=== PATIENT | female | born 1970 | race Caucasian/White ===

== ENCOUNTER 2018-05-01 16:43 | Outpatient (CLI) | payer BC ==
--- NOTE | 2018-05-01 23:14 | XRAY Report ---
Reason: Back Pain, Lumbar w/radiculopathy Procedure Date: 05/01/2018 Accession Number: [id number] / [id number] Procedure: XR - Lumbar Spine Complete CPT Code: FULL RESULT: EXAM: LUMBOSACRAL SPINE RADIOGRAPHY EXAM DATE: 05/01/2018 05:09 PM. CLINICAL HISTORY: Back Pain, Lumbar w/radiculopathy. COMPARISONS: None. TECHNIQUE: 3 views. FINDINGS: Alignment: There is degenerative anterolisthesis of L4 on L5 by approximately 5 mm. Minimal degenerative levoscoliosis. Bones: Five bee-lfm-dyfzann lumbar vertebral bodies are present. No fractures or bone lesions. Disks: Degenerative disk disease. Facets: Degenerative facet arthropathy. Sacroiliac Joints: Unremarkable. Soft Tissues: Normal. The visualized bowel gas pattern is normal. IMPRESSION: Degenerative disk and facet disease, with degenerative anterolisthesis of L4 on L5 and mild scoliosis. RADIA
== END 2018-05-01 16:44 | disposition home or self-care (01) ==
LOC: DI 16:43
PROVIDERS: ATTEND Physician Assistant Medical
DX: M51.36 Other intervertebral disc degeneration, lumbar region (principal); M47.9 Spondylosis, unspecified; M43.16 Spondylolisthesis, lumbar region; M41.56 Other secondary scoliosis, lumbar region
CPT/HCPCS: 72110

== ENCOUNTER 2018-11-13 13:41 | Emergency (ER) | payer OTHER, BC ==
[2018-11-13 13:52] VITALS: BP 173/103
--- NOTE | 2018-11-13 13:55 | ED Physician Documentation ---
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.) Where injury occurred: Work Timing - onset: Today (just TRAVELING [employer]) Timing - details: Abrupt onset (direct pressure applied right away.) Worsened by: Palpating Associated symptoms: No: Weakness, Numbness Similar symptoms before: Has not had sx before Review of Systems Skin: reports: Laceration (s) Neurologic: denies: Focal weakness, Numbness PD PAST MEDICAL HISTORY - Past Medical History Cardiovascular: None Respiratory: None Neuro: None - Present Medications Home Medications: Ambulatory Orders Medication Instructions Recorded Confirmed Atorvastatin [Lipitor] 10 mg PO DAILY 11/13/18 11/13/18 Duloxetine HCl [Cymbalta] 20 mg PO DAILY 11/13/18 11/13/18 Omeprazole Magnesium [Prilosec] 10 mg PO DAILY 11/13/18 11/13/18 buPROPion [Wellbutrin Sr] 150 mg PO BID 11/13/18 11/13/18 - Allergies Allergies/Adverse Reactions: Allergies Allergy/AdvReac Type Severity Reaction Status Date / Time codeine Allergy Headache Verified 11/13/18 13:47 pregabalin [From Lyrica] Allergy Headache Verified 11/13/18 13:48 PD ED PE NORMAL - Vitals Vital signs reviewed: Yes - General General: Alert and oriented X 3, No acute distress, Well developed/nourished - Derm Derm: Normal color, Warm and dry - Extremities Extremities: Other (Dorsum of the right thumb just distal to the IP joint shows a well-demarcated 1-1/2 cm laceration that does not really open with flexion and extension. There is no foreign body. There is no bleeding at this time. She has normal sensation distal to the laceration. It does not involve the nailbed.) - Neuro Neuro: Alert and oriented X 3, No motor deficit, No sensory deficit Results - Vitals Vitals: Vital Signs - 24 hr 11/13/18 13:45 Temperature 36.5 C Heart Rate 92 Respiratory 14 Rate Blood Pressure 173/103 H O2 Saturation 100 Procedures - Laceration (location) right thumb Length in cm: 1.5 Wound type: Linear, Into subcut fat, Clean Neurovascular status: Sensory intact, Motor intact Tendon involvement: No: Tendon Injury Skin layer closure: Dermabond, Steri strips Other: Patient tolerated well, Tetanus UTD (in 2013) PD MEDICAL DECISION MAKING - ED course Complexity details: considered differential, d/w patient Departure - Departure Disposition: 01 Home, Self Care Clinical Impression: Thumb laceration Qualifiers: Encounter type: initial encounter Damage to nail status: without damage Foreign body presence: without foreign body Laterality: right Qualified Code(s): S61.011A - Laceration without foreign body of right thumb without damage to nail, initial encounter Condition: Stable Record reviewed to determine appropriate education?: Yes Instructions: ED Laceration Hand Follow-Up: Breanna Reed PA-C [Primary Care Provider] - Comments: Keep the area clean and dry for the next several days. Allow the Steri-Strips to fall off on their own after several days or more. At that point you should build treated with normal wound care of cleaning ointment and a Band-Aid. It should be sealed together pretty well after several days. Recheck if signs of infection. Tylenol or ibuprofen if needed for pains.
[2018-11-13] MEDS ORDERED: IBUPROFEN 600 MG TABLET PO STA (14:13)
[2018-11-13] MEDS ORDERED: ACETAMINOPHEN 325 MG TABLET PO STA (14:13)
== END 2018-11-13 14:30 | disposition home or self-care (01) ==
LOC: ED 13:41
DX: S61.011A Laceration without foreign body of right thumb without damage to nail, initial encounter (principal); W27.5XXA Contact with paper-cutter, initial encounter; Y93.89 Activity, other specified; Y99.0 Civilian activity done for income or pay
CPT/HCPCS: 1040M; 12001; 99282; 99283; A9270

== ENCOUNTER 2019-02-11 09:41 | Outpatient (CLI) | payer BC ==
[2019-02-11 17:25] LABS: BASOPHILS # (AUTO) 0.1 10^3/uL (0.0-0.1); BASOPHILS % (AUTO) 0.8 %; EOSINOPHILS # (AUTO) 0.2 10^3/uL (0.0-0.7); EOSINOPHILS % (AUTO) 2.5 %; HGB - HEMOGLOBIN 12.5 g/dL (12.0-16.0); LYMPHOCYTES # (AUTO) 3.2 10^3/uL (1.5-3.5); LYMPHOCYTES % (AUTO) 45.9 %; MEAN CORPUSCULAR HGB CONC 30.7 g/dL (32.0-36.0); MEAN CORPUSCULAR VOLUME 84.8 fL (81.0-99.0); MEAN PLATELET VOLUME 10.4 fL (7.9-10.8); MONOCYTES # (AUTO) 0.6 10^3/uL (0.0-1.0); MONOCYTES % (AUTO) 8.4 %; PLT - PLATELET COUNT 267 10^3/uL (130-450); RED CELL DISTRIBUTION WIDTH 15.4 % (12.0-15.0); WHITE BLOOD COUNT 7.1 x10^3/uL (4.8-10.8)
[2019-02-11 17:52] LABS: ALBUMIN 4.5 g/dL (3.2-5.5); ALBUMIN/GLOBULIN RATIO 1.4 (1.0-2.2); ALKALINE PHOSPHATASE 49 IU/L (42-121); ALT ALANINE AMINOTRANSFERASE 37 IU/L (10-60); AST ASPARTATE AMINOTRANSFERASE 26 IU/L (10-42); BILIRUBIN,TOTAL 0.5 mg/dL (0.2-1.0); BUN - BLOOD UREA NITROGEN 19 mg/dL (6-20); CALCIUM 9.8 mg/dL (8.5-10.3); CARBON DIOXIDE - CO2 27 mmol/L (21-32); CHLORIDE 106 mmol/L (101-111); CHOL/HDL RATIO 2.9 (<4.4); CHOLESTEROL 196 mg/dL; CREATININE 0.9 mg/dL (0.4-1.0); GFR - MDRD 67 (>89); GLUCOSE 94 mg/dL (70-100); HDL CHOLESTEROL 67 mg/dL; LDL CHOLESTEROL,CALCULATED 104 mg/dL; LDL/HDL RATIO 1.6 (<4.4); SODIUM 143 mmol/L (135-145); TOTAL PROTEIN 7.8 g/dL (6.7-8.2); VLDL CHOLESTEROL 25 mg/dL
== END 2019-02-11 09:42 | disposition home or self-care (01) ==
LOC: LAB.S 09:41
PROVIDERS: ATTEND Physician Assistant Medical
DX: E78.00 Pure hypercholesterolemia, unspecified (principal); Z79.899 Other long term (current) drug therapy
CPT/HCPCS: 36415; 80053; 80061; 83721; 85025

== ENCOUNTER 2019-08-30 12:25 | Emergency (ER) | payer BC, OTHER ==
--- NOTE | 2019-08-30 13:49 | ED Physician Documentation ---
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 No fall.) Review of Systems Constitutional: denies: Fever, Chills Cardiac: denies: Chest pain / pressure, Palpitations Respiratory: denies: Dyspnea, Cough PD PAST MEDICAL HISTORY - Past Medical History Cardiovascular: None Respiratory: None Neuro: None - Past Surgical History Past Surgical History: No - Present Medications Home Medications: Ambulatory Orders Medication Instructions Recorded Confirmed Atorvastatin [Lipitor] 10 mg PO DAILY 11/13/18 11/13/18 Duloxetine HCl [Cymbalta] 20 mg PO DAILY 11/13/18 11/13/18 Omeprazole Magnesium [Prilosec] 10 mg PO DAILY 11/13/18 11/13/18 buPROPion [Wellbutrin Sr] 150 mg PO BID 11/13/18 11/13/18 Cyclobenzaprine [Flexeril] 10 mg PO TID PRN #20 tablet 08/30/19 - Allergies Allergies/Adverse Reactions: Allergies Allergy/AdvReac Type Severity Reaction Status Date / Time codeine Allergy Headache Verified 08/30/19 12:37 pregabalin [From Lyrica] Allergy Headache Verified 08/30/19 12:37 - Social History Does the pt smoke?: No Smoking Status: Never smoker Does the pt drink ETOH?: No Does the pt have substance abuse?: No - Immunizations Immunizations are current?: Yes - POLST Patient has POLST: No PD ED PE NORMAL - Vitals Vital signs reviewed: Yes - General General: Alert and oriented X 3, No acute distress - Neck Neck: Other (No midline neck tenderness but she is tender of the left greater than right sternocleidomastoid and difficulty with rotation of the neck especially to the left.) - Extremities Extremities: Other (Mild tenderness of the proximal forearm, no swelling. Full range of motion at the wrist elbow and shoulder. No bony tenderness throughout the right upper extremity or clavicle. 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 No evidence of bony injury. Normal neurovascular status. 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 Return for new or worsening symptoms. Do not drink or drive while taking prescription muscle relaxers. I have also written a handwritten order for physical therapy 3 times a week for 6 weeks as needed but I would not start that unless you remain symptomatic for more than a few days. Forms: Activity restrictions
[2019-08-30 14:07] VITALS: BP 138/77
== END 2019-08-30 14:18 | disposition home or self-care (01) ==
LOC: ED 12:25
DX: S46.911A Strain of unspecified muscle, fascia and tendon at shoulder and upper arm level, right arm, initial encounter (principal); M54.2 Cervicalgia; M62.838 Other muscle spasm; X50.1XXA Overexertion from prolonged static or awkward postures, initial encounter; Y93.89 Activity, other specified; Y92.219 Unspecified school as the place of occurrence of the external cause; Y99.0 Civilian activity done for income or pay
CPT/HCPCS: 1040M; 99282; 99283

== ENCOUNTER 2020-04-19 14:20 | Outpatient (CLI) | payer BC, OTHER | END 2020-04-19 23:59 | disposition home or self-care (01) | LOC: LAB.R 14:20 | PROVIDERS: ATTEND Physician Assistant Medical | DX: R09.81 Nasal congestion (principal); R53.83 Other fatigue; Z20.828 Contact with and (suspected) exposure to other viral communicable diseases | CPT/HCPCS: 87275; 87276 ==